=== PATIENT | female | born 1990 | race Caucasian/White ===

== ENCOUNTER 2016-09-28 20:01 | Emergency (ER) | payer MEDICAID ==
[~2016-09-28] VITALS: Ht 149.9 cm; Wt 106.1 kg
[2016-09-28 21:58] VITALS: BP 142/88
== END 2016-09-28 21:58 | disposition home or self-care (01) ==
LOC: ED 20:01
DX: J01.90 Acute sinusitis, unspecified (principal)

== ENCOUNTER 2016-12-23 19:26 | Emergency (ER) | payer OTHER ==
[2016-12-23 22:49] LABS: BASOPHIL % 0.4 % (0-2); CALCIUM 8.7 mg/dL (8.5-10.1); CHLORIDE SERUM 102 mmol/L (98-107); CREATININE SERUM 0.7 mg/dL (0.6-1.0); GFR1 > 60 mL/min; GLUCOSE SERUM 104 mg/dL (74-106); POTASSIUM SERUM 3.6 mmol/L (3.5-5.1); SODIUM SERUM 135 mmol/L (136-145)
[2016-12-23 22:54] LABS: ALBUMIN 3.5 g/dL (3.4-5.0); ALKALINE PHOSPHATASE 71 U/L (46-116); ALT/SGPT 82 U/L (14-59); AST/SGOT 39 U/L (15-37); BILIRUBIN TOTAL 0.33 mg/dL (0.20-1.00); LIPASE 184 IU/L (73-393); TOTAL PROTEIN, SERUM 7.4 g/dL (6.4-8.2)
[2016-12-23 22:58] LABS: PLATELET COUNT 457 x10^3mcL (130-400); RED CELL DISTRIBUTION WIDTH 17.6 % (11.5-14.5)
[2016-12-23 23:43] LABS: UA SPECIFIC GRAVITY 1.025 (1.005-1.035); microscopic required? YES; urine erythrocyte TRACE (NEGATIVE)
[2016-12-24 00:40] VITALS: BP 134/78
== END 2016-12-24 00:40 | disposition home or self-care (01) ==
LOC: ED 19:26
PROVIDERS: Emergency Medicine
DX: N83.201 Unspecified ovarian cyst, right side (principal)
CPT/HCPCS: 36415; 87491; 87591

== ENCOUNTER 2017-02-13 12:30 | Emergency (ER) | payer OTHER ==
[2017-02-13 12:37] VITALS: BP 138/83
== END 2017-02-13 14:41 | disposition left against medical advice (07) ==
LOC: ED 12:30
DX: Z53.21 Procedure and treatment not carried out due to patient leaving prior to being seen by health care provider (principal)

== ENCOUNTER 2017-02-22 10:43 | Emergency (ER) | payer OTHER ==
[~2017-02-22] VITALS: Ht 149.9 cm; Wt 102.5 kg
[2017-02-22 11:37] LABS: BASOPHIL % 0.6 % (0-2)
[2017-02-22 11:39] LABS: PLATELET COUNT 475 x10^3mcL (130-400); RED CELL DISTRIBUTION WIDTH 17.8 % (11.5-14.5)
[2017-02-22 11:54] LABS: CALCIUM 8.6 mg/dL (8.5-10.1); CARBON DIOXIDE 27.6 mmol/L (21-32); CHLORIDE SERUM 104 mmol/L (98-107); CREATININE SERUM 0.7 mg/dL (0.6-1.0); GFR1 > 60 mL/min; GLUCOSE SERUM 123 mg/dL (74-106); POTASSIUM SERUM 3.4 mmol/L (3.5-5.1); SODIUM SERUM 138 mmol/L (136-145)
[2017-02-22 11:56] LABS: rbc morphology (normal/abnorm) ABNORMAL (NORMAL)
[2017-02-22 11:58] LABS: UA SPECIFIC GRAVITY >=1.030 (1.005-1.035)
[2017-02-22 11:59] LABS: ALBUMIN 3.7 g/dL (3.4-5.0); ALKALINE PHOSPHATASE 74 U/L (46-116); ALT/SGPT 56 U/L (14-59); AST/SGOT 34 U/L (15-37); TOTAL PROTEIN, SERUM 8.1 g/dL (6.4-8.2)
[2017-02-22 11:59] LABS: microscopic required? YES; urine erythrocyte 3+ (NEGATIVE)
[2017-02-22 12:48] VITALS: BP 101/61
== END 2017-02-22 13:28 | disposition home or self-care (01) ==
LOC: ED 10:43
PROVIDERS: Emergency Medicine
DX: R10.31 Right lower quadrant pain (principal); Z90.49 Acquired absence of other specified parts of digestive tract
CPT/HCPCS: 36415

== ENCOUNTER 2017-03-12 10:47 | Emergency (ER) | payer OTHER ==
[~2017-03-12] VITALS: Ht 149.9 cm; Wt 100.2 kg
[2017-03-12 11:14] VITALS: BP 143/83
== END 2017-03-12 12:34 | disposition home or self-care (01) ==
LOC: ED 10:47
DX: J02.9 Acute pharyngitis, unspecified (principal)

== ENCOUNTER 2017-09-22 09:32 | Emergency (ER) | payer SELFPAY ==
[~2017-09-22] VITALS: Ht 149.9 cm; Wt 104.8 kg
[2017-09-22 09:41] VITALS: Ht 149.9 cm; Wt 104.8 kg
[2017-09-22 10:41] LABS: BASOPHIL % 0.6 % (0-2)
[2017-09-22 10:42] LABS: PLATELET COUNT 512 x10^3mcL (130-400); RED CELL DISTRIBUTION WIDTH 17.3 % (11.5-14.5); rbc morphology (normal/abnorm) ABNORMAL (NORMAL)
[2017-09-22 10:52] LABS: CALCIUM 8.4 mg/dL (8.5-10.1); CHLORIDE SERUM 103 mmol/L (98-107); CREATININE SERUM 0.6 mg/dL (0.6-1.0); GFR1 > 60 mL/min; GLUCOSE SERUM 98 mg/dL (74-106); POTASSIUM SERUM 4.4 mmol/L (3.5-5.1); SODIUM SERUM 137 mmol/L (136-145)
[2017-09-22 10:57] LABS: ALKALINE PHOSPHATASE 59 U/L (46-116); ALT/SGPT 45 U/L (14-59); AST/SGOT 25 U/L (15-37); BILIRUBIN TOTAL 0.32 mg/dL (0.20-1.00); LIPASE 166 IU/L (73-393); TOTAL PROTEIN, SERUM 7.3 g/dL (6.4-8.2)
[2017-09-22 10:58] LABS: UA SPECIFIC GRAVITY >=1.030 (1.005-1.035); microscopic required? YES; urine erythrocyte 3+ (NEGATIVE)
[2017-09-22 11:04] LABS: ALBUMIN 3.3 g/dL (3.4-5.0)
[2017-09-22 13:36] VITALS: BP 110/67
== END 2017-09-22 13:36 | disposition home or self-care (01) ==
LOC: ED 09:32
PROVIDERS: Emergency Medicine
DX: R10.31 Right lower quadrant pain (principal); R11.0 Nausea; D64.9 Anemia, unspecified; Z91.018 Allergy to other foods
CPT/HCPCS: J1885; J2405

== ENCOUNTER 2017-09-25 19:19 | Emergency (ER) | payer SELFPAY ==
[~2017-09-25] VITALS: Ht 149.9 cm; Wt 104.8 kg
[2017-09-25 19:31] VITALS: Ht 149.9 cm; Wt 104.8 kg
[2017-09-25 20:50] LABS: RED CELL DISTRIBUTION WIDTH 17.9 % (11.5-14.5)
[2017-09-25 20:51] LABS: PLATELET COUNT 536 x10^3mcL (130-400)
[2017-09-25 21:00] LABS: rbc morphology (normal/abnorm) ABNORMAL (NORMAL)
[2017-09-25 21:02] LABS: CALCIUM 8.6 mg/dL (8.5-10.1); CARBON DIOXIDE 23.2 mmol/L (21-32); CHLORIDE SERUM 102 mmol/L (98-107); CREATININE SERUM 0.6 mg/dL (0.6-1.0); GFR1 > 60 mL/min; GLUCOSE SERUM 103 mg/dL (74-106); POTASSIUM SERUM 4.3 mmol/L (3.5-5.1); SODIUM SERUM 132 mmol/L (136-145)
[2017-09-25 21:07] LABS: ALBUMIN 3.6 g/dL (3.4-5.0); ALKALINE PHOSPHATASE 70 U/L (46-116); ALT/SGPT 61 U/L (14-59); AST/SGOT 37 U/L (15-37); BILIRUBIN TOTAL 0.3 mg/dL (0.20-1.00)
[2017-09-25 21:18] LABS: TOTAL PROTEIN, SERUM 8.3 g/dL (6.4-8.2)
[2017-09-25 22:01] VITALS: BP 151/95
== END 2017-09-25 22:01 | disposition home or self-care (01) ==
LOC: ED 19:19
PROVIDERS: Emergency Medicine
DX: N93.8 Other specified abnormal uterine and vaginal bleeding (principal); D64.9 Anemia, unspecified; E66.9 Obesity, unspecified; Z91.018 Allergy to other foods
CPT/HCPCS: 36415

== ENCOUNTER 2018-04-09 09:04 | Emergency (ER) | payer MEDICAID ==
[~2018-04-09] VITALS: Ht 149.9 cm; Wt 107.0 kg
[2018-04-09 09:18] VITALS: Ht 149.9 cm; Wt 107.0 kg
[2018-04-09 11:17] LABS: RED CELL DISTRIBUTION WIDTH 15.9 % (11.5-14.5)
[2018-04-09 11:18] LABS: PLATELET COUNT 434 x10^3mcL (130-400)
[2018-04-09 11:22] LABS: UA SPECIFIC GRAVITY 1.025 (1.005-1.035); microscopic required? YES; urine erythrocyte 3+ (NEGATIVE)
[2018-04-09 11:26] LABS: CALCIUM 8.6 mg/dL (8.5-10.1); CARBON DIOXIDE 26.8 mmol/L (21-32); CHLORIDE SERUM 102 mmol/L (98-107); CREATININE SERUM 0.6 mg/dL (0.6-1.0); GFR1 > 60 mL/min; GLUCOSE SERUM 97 mg/dL (74-106); POTASSIUM SERUM 4.1 mmol/L (3.5-5.1); SODIUM SERUM 136 mmol/L (136-145)
[2018-04-09 11:30] LABS: ALBUMIN 3.6 g/dL (3.4-5.0); ALKALINE PHOSPHATASE 68 U/L (46-116); ALT/SGPT 95 U/L (14-59); AMYLASE 59 U/L (25-115); AST/SGOT 50 U/L (15-37); BILIRUBIN TOTAL 0.5 mg/dL (0.20-1.00); LIPASE 155 IU/L (73-393); TOTAL PROTEIN, SERUM 7.8 g/dL (6.4-8.2)
[2018-04-09 13:48] VITALS: BP 125/74
== END 2018-04-09 13:48 | disposition home or self-care (01) ==
LOC: ED 09:04
PROVIDERS: Emergency Medicine
DX: N39.0 Urinary tract infection, site not specified (principal); N76.0 Acute vaginitis; D64.9 Anemia, unspecified; E66.01 Morbid (severe) obesity due to excess calories; Z68.42 Body mass index [BMI] 45.0-49.9, adult; Z90.49 Acquired absence of other specified parts of digestive tract; Z91.018 Allergy to other foods
CPT/HCPCS: J2405; J3010; J7030

== ENCOUNTER 2018-05-15 11:35 | Emergency (ER) | payer MEDICAID ==
[~2018-05-15] VITALS: Ht 149.9 cm; Wt 108.4 kg
[2018-05-15 11:52] VITALS: BP 123/74; Ht 149.9 cm; Wt 108.4 kg
== END 2018-05-15 13:03 | disposition home or self-care (01) ==
LOC: ED 11:35
DX: J06.9 Acute upper respiratory infection, unspecified (principal); Z86.2 Personal history of diseases of the blood and blood-forming organs and certain disorders involving the immune mechanism; Z90.49 Acquired absence of other specified parts of digestive tract; Z91.018 Allergy to other foods

== ENCOUNTER 2019-05-15 12:48 | Emergency (ER) | payer OTHER ==
[~2019-05-15] VITALS: Ht 149.9 cm; Wt 107.7 kg
[2019-05-15 13:10] VITALS: BP 131/85; Ht 149.9 cm; Wt 107.7 kg
== END 2019-05-15 13:39 | disposition home or self-care (01) ==
LOC: ED 12:48
DX: B34.9 Viral infection, unspecified (principal); Z91.018 Allergy to other foods; Z86.2 Personal history of diseases of the blood and blood-forming organs and certain disorders involving the immune mechanism

== ENCOUNTER 2019-05-17 17:01 | Emergency (ER) | payer OTHER ==
[~2019-05-17] VITALS: Ht 149.9 cm; Wt 109.3 kg
[2019-05-17 17:13] VITALS: Ht 149.9 cm; Wt 109.3 kg
[2019-05-17 19:03] VITALS: BP 12121/6
== END 2019-05-17 19:03 | disposition home or self-care (01) ==
LOC: ED 17:01
DX: J02.0 Streptococcal pharyngitis (principal); Z86.2 Personal history of diseases of the blood and blood-forming organs and certain disorders involving the immune mechanism; Z90.49 Acquired absence of other specified parts of digestive tract; Z91.018 Allergy to other foods
CPT/HCPCS: J0561; J1885

== ENCOUNTER 2020-06-27 10:27 | Emergency (ER) | payer OTHER ==
[~2020-06-27] VITALS: Ht 149.9 cm; Wt 108.9 kg
[2020-06-27 10:32] VITALS: BP 160/97; Ht 149.9 cm; Wt 108.9 kg
== END 2020-06-27 12:34 | disposition home or self-care (01) ==
LOC: ED 10:27
DX: S49.91XA Unspecified injury of right shoulder and upper arm, initial encounter (principal); S20.211A Contusion of right front wall of thorax, initial encounter; Z86.73 Personal history of transient ischemic attack (TIA), and cerebral infarction without residual deficits; Z91.018 Allergy to other foods; W00.0XXA Fall on same level due to ice and snow, initial encounter; Y93.89 Activity, other specified; Y92.89 Other specified places as the place of occurrence of the external cause; Y99.8 Other external cause status